=== PATIENT | male | born 1965 | race Native Hawaiian/Other Pacific Islander ===

== ENCOUNTER 2018-01-24 10:27 | Outpatient (CLI) | payer BC ==
[2018-01-24 11:10] LABS: PLATELET COUNT 210 K/uL (142-355)
[2018-01-24 11:44] LABS: POTASSIUM 4.2 mmol/L (3.6-5.2)
== END 2018-01-24 20:07 | disposition home or self-care (01) ==
LOC: LABW 10:27
PROVIDERS: Internal Medicine
DX: R10.31 Right lower quadrant pain (principal)
CPT/HCPCS: 36415; 80053; 82150; 83690; 85027; Q9963

== ENCOUNTER 2018-10-25 16:31 | Outpatient (CLI) | payer BC | END 2018-10-25 20:58 | disposition home or self-care (01) | LOC: RAD 16:31 | DX: M54.5 Low back pain (principal) ==

== ENCOUNTER 2018-11-10 09:45 | Outpatient (CLI) | payer BC | END 2018-11-10 23:24 | disposition home or self-care (01) | LOC: MRI 09:45 | DX: M47.816 Spondylosis without myelopathy or radiculopathy, lumbar region (principal) ==

== ENCOUNTER 2021-08-05 13:02 | Outpatient (CLI) | payer BC | END 2021-08-05 20:37 | disposition home or self-care (01) | LOC: CT 13:02 | PROVIDERS: ATTEND Internal Medicine | DX: R07.89 Other chest pain (principal); M54.2 Cervicalgia; S09.90XA Unspecified injury of head, initial encounter; X58.XXXA Exposure to other specified factors, initial encounter; Y93.89 Activity, other specified; Y92.89 Other specified places as the place of occurrence of the external cause ==

== ENCOUNTER 2022-11-18 13:15 | Emergency (ER) | payer BC ==
[~2022-11-18] VITALS: Ht 182.9 cm; Wt 88.5 kg
[2022-11-18 13:24] VITALS: BP 161/99; TEMP 97.9
== END 2022-11-18 14:22 | disposition home or self-care (01) ==
LOC: ED 13:15
DX: L03.113 Cellulitis of right upper limb (principal); Y92.89 Other specified places as the place of occurrence of the external cause
CPT/HCPCS: 90471; 90715; 99282

== ENCOUNTER 2023-06-09 09:29 | Outpatient (CLI) | payer BC | END 2023-06-09 20:24 | disposition home or self-care (01) | LOC: MRI 09:29 | PROVIDERS: ATTEND Internal Medicine | DX: M47.22 Other spondylosis with radiculopathy, cervical region (principal) | CPT/HCPCS: 36415; 82565; 84520; A9576 ==